=== PATIENT | female | born 1960 | race African-American/Black ===

== ENCOUNTER 2016-07-31 08:56 | Inpatient (IN) | payer OTHER ==
[~2016-07-31] VITALS: Ht 160 cm; Wt 95.3 kg
[2016-07-31] VITALS (12 sets, daily range): BP systolic 112–149; BP diastolic 64–89
[2016-07-31] MEDS: ceFAZolin sod 2 GM in D5W 110 ML IV SCH ×3 (08:00)
[~2016-07-31 08:56] MED LIST: ceFAZolin 1gm in D5W 55ml IVP ONE; celeBREX 200mg Cap **SURGERY PATIENTS ONLY ORAL ONE; oxyCONTIN 20mg tab ORAL ONE
[2016-07-31] MEDS ORDERED: SYNTHROID50 MCG ORAL (13:32)
[2016-07-31] MEDS ORDERED: NORVASC10 MG ORAL (13:32)
[2016-07-31] MEDS ORDERED: VENTOLIN HFA18 GM INH (13:32)
[2016-07-31] MEDS ORDERED: GABAPENTIN100 MG ORAL (13:32)
[2016-07-31] MEDS ORDERED: TRAZODONE HCL100 MG ORAL (13:32)
[2016-07-31] MEDS ORDERED: ENALAPRIL MALEA10 MG ORAL (13:32)
[2016-07-31] MEDS ORDERED: PROTONIX40 MG ORAL (13:32)
--- NOTE | 2016-07-31 15:04 | Anethesia Preoperative Eval ---
Anesthesia Pre-op PMH/ROS General Date of Evaluation: Jul 31, 2016 Anesthesiologist: Gaurav ASA Score: ASA 3 Mallampati Score Class I : Soft palate, uvula, fauces, pillars visible Class II: Soft palate, uvula, fauces visible Class III: Soft palate, base of uvula visible Class IV: Only hard plate visible Mallampati Classification: Class III Surgeon: Cass Diagnosis: Right knee osteoarthritis Surgical Procedure: Right total knee replacement Anesthesia History: none Family History: no anesthesia problems Allergies: Coded Allergies: CEFTRIAXONE (Verified Allergy, Severe, hives, 07/31/16) LEVOFLOXACIN (Verified Allergy, Severe, hives, 07/31/16) METRONIDAZOLE (Verified Allergy, Severe, hives, 07/31/16) PIPERACILLIN (Verified Allergy, Severe, hives, 07/31/16) TAZOBACTAM (Verified Allergy, Severe, hives, 07/31/16) Medications: see eMAR Past Medical History Cardiovascular: Reports: HTN, Denies: CAD, [place], arrhythmia, other, valve dz Pulmonary: Reports: asthma, Denies: COPD, YOBANI, other Gastrointestinal/Genitourinary: Reports: GERD, Denies: CRI, ESRD, other Neurologic/Psychiatric: Reports: depression/anxiety - severe uncontrolled axiety, Denies: CVA, TIA, dementia, other Endocrine: Denies: DM, hypothyroidism, other, steroids HEENT: Denies: [place] (L), [place] (R), cataract (L), cataract (R), glaucoma, other Hematology/Immune: Denies: DVT, anemia, bleeding disorder, other Musculoskeletal/Integumentary: Reports: OA, Denies: DDD, DJD, RA, edema, other Other: obesity PSxH Narrative: MIGUEL Anesthesia Pre-op Phys. Exam Physician Exam Last Vital Signs Date Time Temp Pulse Resp B/P Pulse Ox O2 Delivery O2 Flow Rate FiO2 07/31/16 13:37 98.2 66 20 112/64 98 Room Air Constitutional: other - extremely anxious, crying, and screaming on arrival to OR Cardiovascular: RRR Respiratory: other - bilateral wheezing Airway Exam Mallampati Score: Class III MO: limited ROM: limited Teeth: missing, broken Dentures: no lower, no upper Anesthesia Pre-op A/P Labs see chart Studies Pre-op Studies: EKG - sr Risk Assessment & Plan Assessment: ASA III Plan: SPinal with GA Status Change Before Surgery: No Pre-Antibiotics Drug: Ancef 2g Given Within 1 Hr of Incision: Yes Time Given: 16:45 KEITH LOCKWOOD M.D. Jul 31, 2016 15:04
--- NOTE | 2016-07-31 15:34 | Pre-Procedure Note/Attestation ---
Pre-Procedure Note/Attestation Complete Prior to Procedure Planned Procedure: right Procedure Narrative: tka Indications for Procedure Pre-Operative Diagnosis: right knee oa Attestation I attest that I discussed the nature of the procedure; its benefits; risks and complications; and alternatives (and the risks and benefits of such alternatives ), prior to the procedure, with the patient (or the patient's legal canvas products sales representative). I attest that, if there was a reasonable possibility of needing a blood transfusion, the patient (or the patient's legal canvas products sales representative) was given the [facility] standardized written summary, pursuant to the [place] Blood Safety Act ([place] Health and Safety Code # 1645, as amended). I attest that I re-evaluated the patient just prior to the surgery and that there has been no change in the patient's H&P, except as documented below: TORRI MOTLEY Jul 31, 2016 15:34
[2016-07-31] MEDS ORDERED: Morphine Sulfate 2mg/ml Inj IVP PRN (15:45)
[2016-07-31] MEDS ORDERED: Milk of Magnesia 30ml Ud ORAL PRN (15:45)
[2016-07-31] MEDS ORDERED: oxyCODONE 5mg IR tab ORAL PRN (15:45)
[2016-07-31] MEDS ORDERED: Duramorph PF 5mg/10ml amp ONE (16:00)
[2016-07-31] MEDS ORDERED: Bacitracin 50000 Units Vial ONE (16:00)
[2016-07-31] MEDS ORDERED: LR 1000ml ONE (16:30)
[2016-07-31] MEDS ORDERED: Nimbex 2mg/ml Inj 10ML IVP ONE (16:30)
[2016-07-31] MEDS ORDERED: Lidocaine 1% MPF 10mg/ml 5ml ONE (16:30)
[2016-07-31] MEDS ORDERED: Dexamethasone 4mg/ml vial ONE (16:30)
[2016-07-31] MEDS ORDERED: Propofol 10mg/ml 20ml IV ONE (16:30)
[2016-07-31] MEDS ORDERED: Midazolam 2mg/2ml Inj ONE (16:30)
[2016-07-31] MEDS ORDERED: Albuterol 90mcg Inhaler 8gm INH ONE (16:47)
[2016-07-31] MEDS ORDERED: Morphine Sulfate PF 10 ML ONE (16:48)
[2016-07-31] MEDS ORDERED: Bupivacaine w/Epi 0.25% 30ml Vial INJ ONE (16:48)
[2016-07-31] MEDS ORDERED: Ketorolac 30mg Inj ONE (16:49)
[2016-07-31] MEDS ORDERED: Kenalog-40 1ml Vial ONE (16:53)
[2016-07-31] MEDS ORDERED: LR 1000ml 1,000 ML IVLG SCH (17:06)
[2016-07-31] MEDS ORDERED: Midazolam 2mg/2ml Inj IVP PRN (17:15)
[2016-07-31] MEDS ORDERED: fentaNYL 100 mcg/2 mL IV PRN (17:15)
[2016-07-31] MEDS ORDERED: Hydromorphone 0.5mg/0.5ml inj IVP PRN (17:15)
[2016-07-31] MEDS ORDERED: Metoclopramide 10mg/2ml Inj IVP PRN (17:15)
[2016-07-31] MEDS ORDERED: LORazepam Inj 2mg/ml 1ml IV PRN (17:15)
[2016-07-31] MEDS ORDERED: DiphenhydrAMINE 50mg/ml Inj IVP PRN (17:15)
--- NOTE | 2016-07-31 18:23 | Operative Note - PDOC ---
Operative Note Operative Note Pre-op Diagnosis: right knee oa Procedure: right tka Post-op Diagnosis: same as pre-op Operative Findings: consistent w/pre-op dx studies Anesthesia: general Specimen: none Complications: none Condition: stable Estimated Blood Loss: none Implant(s) used?: Yes TORRI MOTLEY Jul 31, 2016 18:23
[2016-07-31] MEDS ORDERED: Tranexamic Acid 500 MG in NS 55 ML IVPB ONE (18:30)
[2016-07-31] MEDS ORDERED: Tranexamic Acid 1,000 MG in NS 55 ML IVPB ONE (18:30)
--- NOTE | 2016-07-31 19:08 | Immediate Post-Op Evaluation ---
Immediate Post-Op Evalulation Immediate Post-Op Evalulation Procedure: Right total knee replacement Date of Evaluation: Jul 31, 2016 Time of Evaluation: 18:46 IV Fluids: 1.4L Blood Products: 0 Estimated Blood Loss: 200 Urinary Output: 150 Blood Pressure Systolic: 115 Blood Pressure Diastolic: 93 Pulse Rate: 78 Respiratory Rate: 16 O2 Sat by Pulse Oximetry: 94 Temperature (Fahrenheit): 97.4 Pain Score (1-10): 0 Nausea: No Vomiting: No Complications 0 Patient Status: awake, reacts, patent, none Hydration Status: adequate Drug: Ancef 2g Given Within 1 Hr of Incision: Yes Time Given: 16:45 KEITH LOCKWOOD M.D. Jul 31, 2016 19:08
[2016-07-31] MEDS ORDERED: D5 1/2NS w/KCl 20mEq 1,000 ML IV SCH (23:00)
[2016-07-31] MEDS: Docusate 100mg cap ORAL SCH (23:16)
[2016-07-31] MEDS: oxyCONTIN 20mg tab ORAL SCH (23:19)
[2016-07-31] MEDS: Acetaminophen 500mg (ES) tab ORAL SCH (23:20)
--- NOTE | 2016-08-01 01:30 | Operative Note - Dictated ---
DATE OF OPERATION: 07/31/2016 PREOPERATIVE DIAGNOSES: 1. Right knee chondral damage. 2. Posttraumatic chondral arthritis. POSTOPERATIVE DIAGNOSES: 1. Right knee chondral damage. 2. Posttraumatic chondral arthritis. PROCEDURES: Right total knee arthroplasty. SURGEON: Edgard Zheng M.D. ANESTHESIA: General. INDICATION FOR PROCEDURE: The patient is a pleasant female who has had progressive right knee pain secondary to chondral damage. She elected to undergo right total knee arthroplasty after failing conservative treatment. Risks, limitations, expectations, and complications related to procedure were discussed in detail. All question were addressed including continued pain, need for future surgery, risk of anesthesia, medical complications, DVT, PE, and mortality risks. All questions were addressed. DESCRIPTION OF PROCEDURE: An informed consent was obtained. The patient was taken to the operative room and placed under general anesthesia. The patient declined a spinal or femoral adductor block. A Khoury catheter was placed. Ancef was administered. She had no reaction to it. The right leg was prepped and draped in a sterile manner. Time-out was performed. An anterior skin incision was then made. A mid vastus arthrotomy was performed. Distal femur was well visualized. The patella was without difficulty everted, therefore, the patella was measured and then resected. The distal femur was well visualized. Distal femoral cutting block was then placed. Distal femur was resected. Of note, there was a possible lateral femoral condyle. Once the distal femur was resected, a posterior anterior sizing guide was placed in appropriate amount of external rotation to make sure it is perpendicular to the epicondylar axis. The size 6 component was selected. The anterior, posterior, chamfer cuts were then made. The proximal tibia was well visualized. Proximal tibial cutting alignment guide was then placed and proximal tibia was then resected. Once that was completed, a size 5 tibial tray was selected with a 9 mm insert. The knee came out to full extension and good stability with 10 degrees of flexion, midflexion, 90 degreees of flexion. No mid flexion instability. At this point, the tibial tray was appropriately externally rotated and keel punch was prepared. Cement was prepared. Implants were impacted into place. Excess cement was removed. Incision was closed with #1 Vicryl suture, 2-0 Vicryl suture, 3-0 Monocryl suture, and Dermabond dressing. Tourniquet was deflated after 60 minutes. EBL: Minimal. COMPLICATIONS: None. SPECIMENS: With multiple bone cuts. IMPLANTS: [employer] size 6 femur, size 5 tibial tray, 9 mm insert with a 31 mm patellar component. Edgard Zheng M.D. DR: IAN JOB#: [id number] CC: MAGGI
[2016-08-01] MEDS: Morphine Sulfate 2mg/ml Inj IVP PRN ×3 (05:34→23:53)
--- NOTE | 2016-08-01 07:06 | Diagnostic Imaging Report ---
Indications: Status post right knee arthroplasty Technique: Portable AP and lateral views of the right knee Findings: Comparison: None Tibial, femoral, patellar prosthetic components appear well seated and in anatomic alignment. No abnormal surrounding lucency is present. Overlying soft tissues are swollen with gas bubbles. . IMPRESSION: Status post right knee arthroplasty.
[2016-08-01 08:00] VITALS: BP 112/76
[2016-08-01 08:31] LABS: MEAN CORPUSCULAR HEMOGLOBIN 30.3 PG (27.0-31.0); MEAN CORPUSCULAR HGB CONC 32.3 G/DL (32.0-36.0); MEAN CORPUSCULAR VOLUME 94 FL (80-99); MEAN PLATELET VOLUME 7.3 FL (6.5-10.1); PLATELET COUNT 323 K/UL (150-450); RED BLOOD COUNT 3.97 M/UL (4.20-5.40); RED CELL DISTRIBUTION WIDTH 15.1 % (11.6-14.8)
[2016-08-01] MEDS ORDERED: celeBREX 200mg Cap **SURGERY PATIENTS ONLY ORAL SCH (09:00)
[2016-08-01] MEDS: Docusate 100mg cap ORAL SCH ×3 (09:17→17:51)
[2016-08-01] MEDS: Acetaminophen 500mg (ES) tab ORAL SCH ×3 (09:18→17:50)
[2016-08-01] MEDS: oxyCONTIN 20mg tab ORAL SCH ×2 (09:18→20:59)
--- NOTE | 2016-08-01 10:17 | 48 Hour Post Anesthesia Eval ---
Post Anesthesia Evaluation Procedure: Right total knee replacement Date of Evaluation: Aug 01, 2016 Time of Evaluation: 08:30 Blood Pressure Systolic: 112 0: 76 Pulse Rate: 96 Respiratory Rate: 19 Temperature (Fahrenheit): 98.1 O2 Sat by Pulse Oximetry: 97 Airway: patent Nausea: No Vomiting: No Pain Intensity: 2 Hydration Status: adequate Cardiopulmonary Status: at baseline Mental Status/LOC: patient returned to baseline Follow-up Care/Observations: Patient in bed sleeping comfortably, Agitated once aroused. Hemodynamically stable. Post-Anesthesia Complications: 0 Follow-up care needed: N/A - further care as per primary team KEITH LOCKWOOD M.D. Aug 01, 2016 10:17
[2016-08-01 11:09] LABS: BAND NEUTROPHILS % (MANUAL) 0 % (0-8); BASOPHILS % (MANUAL) 0 % (0-2); EOSINOPHILS % (MANUAL) 0 % (0-3); LYMPHOCYTES % (MANUAL) 4 % (20-45); NEUTROPHILS % (MANUAL) 92 % (45-75); PLATELET ESTIMATE ADEQUATE; PLATELET MORPHOLOGY NORMAL; TOTAL CELLS COUNTED 100
[2016-08-01 12:00] VITALS: BP 140/84
[2016-08-01] MEDS ORDERED: Morphine Sulfate 2mg/ml Inj IVP PRN (12:00)
[2016-08-01] MEDS ORDERED: Milk of Magnesia 30ml Ud ORAL PRN (12:00)
[2016-08-01] MEDS: D5 1/2NS w/KCl 20mEq 1,000 ML IV SCH ×2 (12:00→23:52)
[2016-08-01] MEDS: oxyCODONE 5mg IR tab ORAL PRN ×2 (13:31→17:49)
[2016-08-01 16:00] VITALS: BP 132/81
[2016-08-01 20:13] VITALS: BP 137/80
[2016-08-02 00:11] VITALS: BP 135/74
[2016-08-02 04:00] VITALS: BP 139/89
[2016-08-02] MEDS: oxyCODONE 5mg IR tab ORAL PRN (05:10)
[2016-08-02] MEDS: Docusate 100mg cap ORAL SCH ×2 (08:06→12:32)
[2016-08-02] MEDS: oxyCONTIN 20mg tab ORAL SCH (08:08)
[2016-08-02] MEDS: Acetaminophen 500mg (ES) tab ORAL SCH ×2 (08:10→12:32)
[2016-08-02 08:12] VITALS: BP 149/74
[2016-08-02 08:14] LABS: BASOPHILS % (AUTO) 1.1 % (0.0-2.0); LYMPHOCYTES % (AUTO) 10.5 % (20.0-45.0); MEAN CORPUSCULAR HEMOGLOBIN 30.1 PG (27.0-31.0); MEAN CORPUSCULAR HGB CONC 32.4 G/DL (32.0-36.0); MEAN CORPUSCULAR VOLUME 93 FL (80-99); MEAN PLATELET VOLUME 7.2 FL (6.5-10.1); MONOCYTES % (AUTO) 8.5 % (1.0-10.0); NEUTROPHILS % (AUTO) 79.9 % (45.0-75.0); PLATELET COUNT 275 K/UL (150-450); RED BLOOD COUNT 3.46 M/UL (4.20-5.40); RED CELL DISTRIBUTION WIDTH 14.7 % (11.6-14.8); WHITE BLOOD COUNT 12.2 K/UL (4.8-10.8)
[2016-08-02] MEDS ORDERED: celeBREX 200mg Cap **SURGERY PATIENTS ONLY ORAL SCH (09:00)
[2016-08-02] MEDS ORDERED: PAIN RELIEF TA1 EACH PO (10:40)
[2016-08-02] MEDS ORDERED: PERCOCET 10-321 EACH ORAL (10:40)
[2016-08-02 12:22] VITALS: BP 137/76
[2016-08-02] MEDS: Morphine Sulfate 2mg/ml Inj IVP PRN (12:35)
--- NOTE | 2016-08-02 14:02 | General Progress Note ---
Assessment/Plan Assessment/Plan OA TKA leukocytosis PLAN 1. incentive spirometry 2. aspirin 3. PT therapy 4. Hydration adequate 5. Pain management- RX given 6. discharge home Subjective Allergies: Coded Allergies: CEFTRIAXONE (Verified Allergy, Severe, hives, 07/31/16) LEVOFLOXACIN (Verified Allergy, Severe, hives, 07/31/16) METRONIDAZOLE (Verified Allergy, Severe, hives, 07/31/16) PIPERACILLIN (Verified Allergy, Severe, hives, 07/31/16) TAZOBACTAM (Verified Allergy, Severe, hives, 07/31/16) Subjective post op comfortable Objective Last 24 Hour Vital Signs Date Time Temp Pulse Resp B/P Pulse Ox O2 Delivery O2 Flow Rate FiO2 08/02/16 12:22 98.7 79 20 137/76 97 Room Air 08/02/16 08:12 98.8 75 22 149/74 96 Room Air 08/02/16 04:00 98.1 73 20 139/89 97 Room Air 08/02/16 00:11 96.4 82 18 135/74 94 Room Air 08/01/16 20:13 99.9 86 19 137/80 95 Room Air 08/01/16 16:00 98.2 81 20 132/81 100 Room Air 08/01/16 14:53 97.9 Intake and Output 08/01/16 08/02/16 19:00 07:00 Intake Total 615 ml 315 ml Balance 615 ml 315 ml Intake Oral 240 ml 240 ml IV Total 375 ml 75 ml # Voids 2 4 Laboratory Tests 08/02/16 07:06: White Blood Count 12.2H, Red Blood Count 3.46L, Hemoglobin 10.4L, Hematocrit 32.2L, Mean Corpuscular Volume 93, Mean Corpuscular Hemoglobin 30.1, Mean Corpuscular Hemoglobin Concent 32.4, Red Cell Distribution Width 14.7, Platelet Count 275, Mean Platelet Volume 7.2, Neutrophils (%) (Auto) 79.9H, Lymphocytes ( %) (Auto) 10.5L, Monocytes (%) (Auto) 8.5, Eosinophils (%) (Auto) 0.0, Basophils (%) (Auto) 1.1 Height (Feet): 5 Height (Inches): 3.00 Weight (Pounds): 210 Objective WDWN NAD clear breath sounds bilaterally without rhonchi or wheeze [id number] without MRG NABS nontender no HSM no CCE nonfocal pain with mobility ALLEN SCHNEIDER Aug 02, 2016 14:02
--- NOTE | 2016-08-02 14:02 | General Progress Note ---
Assessment/Plan Assessment/Plan OA TKA leukocytosis PLAN 1. incentive spirometry 2. Lovenox 3. PT evaluation and therapy 4. Hydration 5. Pain management 6. discharge once stable with outpatient follow up Subjective Date patient seen: Aug 01, 2016 Allergies: Coded Allergies: CEFTRIAXONE (Verified Allergy, Severe, hives, 07/31/16) LEVOFLOXACIN (Verified Allergy, Severe, hives, 07/31/16) METRONIDAZOLE (Verified Allergy, Severe, hives, 07/31/16) PIPERACILLIN (Verified Allergy, Severe, hives, 07/31/16) TAZOBACTAM (Verified Allergy, Severe, hives, 07/31/16) Subjective (late entry) post op comfortable Objective vss afebrile Height (Feet): 5 Height (Inches): 3.00 Weight (Pounds): 210 Objective WDWN NAD clear breath sounds bilaterally without rhonchi or wheeze [id number] without MRG NABS nontender no HSM no CCE nonfocal pain with mobility ALLEN SCHNEIDER Aug 02, 2016 14:01
--- NOTE | 2016-08-03 11:30 | Progress Note ---
DATE: 08/02/2016 SUBJECTIVE: The patient is postop day #2, status post right total knee arthroplasty. She has had no issues with desaturation overnight. She had still has moderate discomfort and pain. She ambulated with therapy. PHYSICAL EXAMINATION: Examination shows dressing has some saturation. Posterior calf is soft. Neurovascular exam is normal. ASSESSMENT: Status post right total knee arthroplasty. DISCUSSION: At this point, we are going to work with PT/OT and intermittently going up and down stairs. Given that she does have some stairs at home. We are going to work on discharge planning later on today. I discussed with her in terms of the pain, it is going to be very difficult to completely resolved her pain postoperative. Given her chronic pain issues, I discussed with the patient needs to rehab this knee for the pain to get better. She is going to proceed with a prescription for Percocet for breakthrough pain. Conmtinue Cryotherapy. In terms of DVT prophylaxis, signs and symptoms for DVT were discussed again and I will see her back in a week as outpatient. Edgard Zheng M.D. DR: LOTTIE JOB#: [id number] CC: MAGGI
--- NOTE | 2016-08-03 22:01 | Progress Note ---
DATE: 08/01/2016 SUBJECTIVE: The patient is status post right total knee arthroplasty. She had no issues overnight. She was in the telemetry floor. She was stable enough with her normal self that since overnight she has moderate discomfort. OBJECTIVE: Examination shows some drainage along the incision site. Posterior calf is soft. Neurovascular is normal. DIAGNOSTIC DATA: Imaging studies show implant in good position. ASSESSMENT: Status post right total knee arthroplasty. DISCUSSION: At this point what we are going to do is work with PT and OT. We will transfer her to regular floor. We are going to work on stair climbing. In terms of the pain management, she has very low pain threshold. She has chronic pain and therefore I have discussed with her that she is going to have the pain, but the pain will not be controlled to the extent where she is pain free, that it is going to take a little bit of time to work his knee out and that she does the rehab and therapy then the pain should resolve. Instructions for DVT including signs and symptoms of DVT. We are going to maintain her on aspirin 325 mg b.i.d. for DVT prophylaxis. Alternatives were discussed with the patient. We will see how she does today and tomorrow. Edgard Zheng M.D. DR: SANDRA JOB#: [id number] CC: MAGGI
--- NOTE | 2016-08-04 08:07 | Discharge Summary ---
Discharge Summary Hospital Course Date of Admission Jul 31, 2016 at 08:56 Date of Discharge Aug 02, 2016 at 14:00 Admitting Diagnosis right knee posttraumatic chondral arthritis Reason for Hospitalization: elective surgery HPI Cintia Brunson is a 56 year old female who was admitted on Jul 31, 2016 at 08:56 for Right Knee Osteoarthritis Consultations dr Shankar - Procedures PROCEDURES: Right total knee arthroplasty- 07/31/16 dr Zheng [facility] Course s/p surgery course of recovery uneventful pain management PT Rx ambulated with cane ( preop level) DVT prophylaxis hydration with IVF initially tolerated diet wound care IS while in the bed surgeon closely followed bowel regimen voided freely BP stable with current regimen leukocytosis trending down, minimal, likely reactive, afebrile, nontoxic cleared for dc and fup as outpt with surgeon FINAL DIAGNOSES 1. Right knee chondral damage. 2. Posttraumatic chondral arthritis. 3. S/P Right total knee arthroplasty. Discharge Medications Continued Medications: Albuterol Sulfate (Ventolin Hfa) 18 Gm Hfa.aer.ad 1 PUFF INH NEEDED, #18 GM 0 Refills Amlodipine Besylate (Norvasc) 10 Mg Tablet 10 MG ORAL DAILY, TAB Asa/Salicylam/Acetaminoph/Caff (Pain Relief Tablet) 1 Each Tablet 1 EACH PO BID, TAB Enalapril Maleate* (Enalapril Maleate*) 10 Mg Tablet 10 MG ORAL DAILY, TAB Gabapentin* (Gabapentin*) 100 Mg Capsule 100 MG ORAL BID, CAP Levothyroxine Sodium (Synthroid) 50 Mcg Tablet 25 MCG ORAL DAILY, TAB Take in the morning on an empty stomach, at least 30 minutes beforefood. Oxycodone Hcl/Acetaminophen 10-325 Mg Tablet (Percocet 10-325 Mg Tablet*) 1 Each Tablet 1 TAB ORAL Q6H PRN for For Pain, #50 TAB 0 Refills Pantoprazole* (Protonix*) 40 Mg Tablet.dr 40 MG ORAL DAILY, TAB Trazodone Hcl* (Desyrel*) 100 Mg Tablet 100 MG ORAL BEDTIME, TAB Discharge Condition Upon Discharge: stable Discharge Disposition Patient was discharged to Home (01) Discharge Diagnoses: Discharge Instructions Discharge Instructions Special Instructions I have been assigned to complete a D/C Summary on this account. I was not involved in the patient management Deanna Marcus NP ([place]) Aug 04, 2016 08:07
== END 2016-08-02 14:00 | disposition home or self-care (01) | DRG 470 ==
LOC: SDSOVERFLO 08:56 → 2E 21:32 → 3E 08-01 10:41
PROC: 0SRC0J9 Replacement of Right Knee Joint with Synthetic Substitute, Cemented, Open Approach (ICD-10-PCS; principal; 2016-07-31 14:15)
DX: M17.31 Unilateral post-traumatic osteoarthritis, right knee (principal); I10 Essential (primary) hypertension; S89.81XS Other specified injuries of right lower leg, sequela; W19.XXXS Unspecified fall, sequela; Y92.512 Supermarket, store or market as the place of occurrence of the external cause; Z88.1 Allergy status to other antibiotic agents; E03.9 Hypothyroidism, unspecified; K57.90 Diverticulosis of intestine, part unspecified, without perforation or abscess without bleeding; F17.200 Nicotine dependence, unspecified, uncomplicated
CPT/HCPCS: 36415; 85007; 85025; 86850; 86900; 86901; 87081; 94003; 94150; J2250; J2405